=== PATIENT | female | born 1930 | race Caucasian/White ===

== ENCOUNTER → 2017-12-10 | Outpatient (CLI) | payer MEDICARE, BC ==
[~2017-12-10] MED LIST: ALTACE 10MG TAB10 MG PO; ASPIRIN 81M81 MG/TA2 PO; BYSTOLIC10 MG PO; CARAFATE 1GM1 G PO; FOLIC ACID 11 MG/TA1 PO; OMEGA-3 FISH1200 MG PO; PREDNISONE20 MG PO; VITAMIN D2000 I1
== END ==
LOC: COL.RAD 07:51
DX: M31.6 Other giant cell arteritis (principal); K76.9 Liver disease, unspecified; I74.2 Embolism and thrombosis of arteries of the upper extremities; S22.030A Wedge compression fracture of third thoracic vertebra, initial encounter for closed fracture; S22.070A Wedge compression fracture of T9-T10 vertebra, initial encounter for closed fracture
CPT/HCPCS: Q9967

== ENCOUNTER 2018-12-06 15:54 | Inpatient (IN) | payer MEDICARE, BC ==
[~2018-12-06] VITALS: Ht 154.9 cm; Wt 57.1 kg
[2019-02-23] VITALS (14 sets, daily range): BP systolic 84–189; BP diastolic 37–70; PULSE 51–101; TEMP 97.4–97.9
[2019-02-23] MEDS ORDERED: ALAWAY 10 ML10 ML OP (05:05)
[2019-02-23] MEDS ORDERED: OSCAL 500 TAB500 MG PO (05:05)
[2019-02-23] MEDS ORDERED: FERRO-TIME325 MG PO (05:07)
[2019-02-23] MEDS ORDERED: LUTEIN6 MG (05:08)
[2019-02-23] MEDS ORDERED: LUTEIN 15 MG-0.1 SGL PO (05:08)
[2019-02-23] MEDS ORDERED: MULTIPLE VITAMI1 CAP PO (05:09)
[2019-02-23] MEDS ORDERED: TOPROL XL 25MG25 MG PO (05:09)
[2019-02-23] MEDS ORDERED: ALTACE 5MG5 MG PO (05:10)
[2019-02-23] MEDS ORDERED: SYSTANE 0.4%-0.1 SOL OP (05:11)
[2019-02-23] MEDS ORDERED: REFRESH OPTIVE0.4 M1 OP (05:11)
[2019-02-23] MEDS ORDERED: VITAMINC1000TA PO (05:12)
[2019-02-23] MEDS ORDERED: ASPIRIN E.C. 8181 MG PO (05:38)
[2019-02-23] MEDS ORDERED: MILLIPRED DP5 MG PO (05:40)
[2019-02-23] MEDS ORDERED: VITAMIN D31000 I1 PO (05:41)
[2019-02-23] MEDS ORDERED: FISH OIL 500 M1 EAC1 PO (05:44)
--- NOTE | 2019-02-23 06:03 | NUR ---
Pt. arrived to the floor via wheelchair, Pt. is A&OX3, assessment complete.
--- NOTE | 2019-02-23 10:30 | NUR ---
PATIENT BACK IN ROOM 329 POST OP. PATIENT IS VERY DROWSY BUT WILL WAKE BRIEFLY TO VERBAL STIMULI. NOTED BRADYCARDIA POST OP AND SOFT B/P, SEE MAR. PATIENT WAS C/OI NAUSEA IN PACU AND GIVEN ZOFRAN & PHEN. NO C/O N/V. IV FLUIDS INFUSING VIA PUMP INTO LEFT FORARM IV. BOWENS TO DD WITH SMALL AMOUNTS OF ZAC COLORED URINE. RTH DRESSING IS CD&I WITH AQUACEL. TEDS & SCD'S TO BLE. POSITIVE PEDAL PULSES. HEAD TO TOE WNL. FAMILY AT BEDSIDE.
--- NOTE | 2019-02-23 14:14 | NUR ---
MYAH met with the patient, the patient's sons: Daniel (ph#[phone]) and Fabien, and her rzcommxy-cp-eoh (Tressa, ph#[phone]) to discuss discharge plan. The patient was sleeping. The patient lives alone in [place]. Daniel states that him and his , Tressa, also live in [place]. Daniel reports the patient was independent with ADLs prior to surgery and that she has a cane and walker. The patient's PCP is Dr. Moo Christy and she receives her medications at [facility]. Daniel reports no difficulties obtaining her meds. The patient's advanced directives are in her chart. Her DPOA-HC is Brett Bauman or Daniel or Fabien. Daniel reports that the plan is for the patient to go to [facility] upon discharge. MYAH presented and explained the Patient Choice Form. The patient's family chose [facility] and did not have a second preference at this time. Patient Choice Form signed by the patient's son, Daniel, and he was provided a copy. MYAH attempted to contact Kamini at [facility] and left her a voicemail. MYAH faxed over the referral. SW awaiting their screen.
--- NOTE | 2019-02-23 14:15 | NUR ---
PATIENT WOULD NOT WAKE OR ANSWER WHEN ROUNDING. FAMILY AT BEDSIDE. PATIENT VERY DROWSY. CONTINUOUS VITAL BEING MONITORED.
--- NOTE | 2019-02-23 14:30 | NUR ---
250CC FLUID BOLUS STARTED PER ORTHO. HOSPITALIST CONSULT FOR SEDATION AND HYPOTENTION. CONSULT CALLED. PATIENT STILL VERY DROWSY.
--- NOTE | 2019-02-23 14:49 | NUR ---
Initial visit; Patient and her family thanked Director Of Medical Services for looking in on her and offering prayer and God's blessings for a rapid and thorough healing.
--- NOTE | 2019-02-23 15:15 | NUR ---
PATIENT IS NOW MORE AWAKE. C/O SLIGHT NAUSEA, NO EMESIS. PATIENT DOESN'T WANT ANY MEDS AT THIS TIME. B/P IMPROVING AFTER FLUID BOLUS. URINE OUTPUT IMPROVED, DRAINED 325CC OF CLEAR URINE. FAMILY AT BEDSIDE. WILL MONITOR.
[2019-02-23 16:00] LABS: BASO % 0.3 % (0.0-2.0); GRAN # 11.4 (1.4-6.5); GRAN % 89.3 % (42.2-75.2); HEMATOCRIT 40.7 % (37.0-47.0); HEMOGLOBIN 12.9 g/dl (12.5-16.0); LYMPH # 0.7 (1.2-3.4); LYMPH % 5.2 % (20.0-51.0); MEAN CELL VOLUME 92 fl (80.0-100.0); MEAN CORPUSCULAR HEMOGLOBIN 29 pg (27.0-31.0); MEAN CORPUSCULAR HGB CONC 32 g/dl (33.0-37.0); MEAN PLATELET VOLUME 10.3 fl (7.4-10.4); MONO # 0.6 (0.1-0.6); MONO % 4.7 % (1.7-9.3); PLATELET COUNT 201 K/mm3 (130-400); RED BLOOD COUNT 4.44 M/mm3 (4.10-5.30); REDCELL DISTRIBUTION WIDTH-CV 15.2 % (11.5-14.5)
[2019-02-23 16:16] LABS: ALANINE AMINOTRANSFERASE 24 U/L (9-52); ALBUMIN 3.3 gm/dL (3.5-5.0); ALKALINE PHOSPHATASE 53 U/L (50-136); ANION GAP 7 mmol/L (7-16); AST,SGOT 33 U/L (15-37); BILIRUBIN,TOTAL 0.3 mg/dL (0.0-1.0); BLOOD UREA NITROGEN 19 mg/dL (7-17); CALCIUM 7.7 mg/dL (8.4-10.2); CARBON DIOXIDE 25 mmol/L (22-30); CHLORIDE 106 mmol/L (98-107); CREATININE, serum 0.93 (0.52-1.25); GLUCOSE 231 mg/dL (74-106); SODIUM 137 mmol/L (137-145); TOTAL PROTEIN 6.3 gm/dL (6.4-8.2)
[2019-02-23 16:32] LABS: TROPONIN-I < 0.012 ng/mL (0.000-0.035)
--- NOTE | 2019-02-23 17:30 | NUR ---
PATIENT FELT NAUSEATED WITH SOLID FOODS BUT WAS ABLE TO DRINK A SOFY. PROTEIN SHAKE.
[2019-02-24] VITALS (7 sets, daily range): BP systolic 102–141; BP diastolic 40–62; PULSE 53–95; TEMP 97.4–99.4
--- NOTE | 2019-02-24 04:27 | NUR ---
Patient has rested well throughout the night. Ambulated with staff to carpet outside doorway and back. Tolerated this well. Educated on the possibility of narcotics bringing down her blood pressure and patient stated she wanted to try to stay away from narcotics anyways. Patient has been very drowsy after she fell asleep and is noted to be hard to wake up. IVF continue. Denies pain. States pain is tolerable when she is up and moving. Denies any further needs. Will continue to monitor.
[2019-02-24 07:09] LABS: BASO % 0.5 % (0.0-2.0); EOS # 0.1 (0.0-0.7); GRAN # 6.4 (1.4-6.5); HEMOGLOBIN 11.7 g/dl (12.5-16.0); LYMPH # 1.6 (1.2-3.4); LYMPH % 18.5 % (20.0-51.0); MEAN CELL VOLUME 92 fl (80.0-100.0); MEAN CORPUSCULAR HEMOGLOBIN 29 pg (27.0-31.0); MEAN CORPUSCULAR HGB CONC 32 g/dl (33.0-37.0); MEAN PLATELET VOLUME 10.6 fl (7.4-10.4); MONO # 0.6 (0.1-0.6); MONO % 6.4 % (1.7-9.3); PLATELET COUNT 185 K/mm3 (130-400); RED BLOOD COUNT 3.99 M/mm3 (4.10-5.30); REDCELL DISTRIBUTION WIDTH-CV 15.3 % (11.5-14.5)
[2019-02-24 07:10] LABS: HEMATOCRIT 36.5 % (37.0-47.0)
[2019-02-24 07:21] LABS: CALCIUM 7.2 mg/dL (8.4-10.2); CREATININE, serum 0.98 (0.52-1.25); POTASSIUM 3.4 mmol/L (3.4-5.0)
[2019-02-24 09:17] LABS: COLLECTION METHOD CATHETER
[2019-02-24 09:25] LABS: PH 6 (5-8); SQUAMOUS EPITHELIAL None Seen /hpf; URINE APPEARANCE Clear; URINE BACTERIA None Seen /hpf; URINE BILIRUBIN Negative (NEGATIVE); URINE BLOOD Negative (NEGATIVE); URINE COLOR Straw; URINE GLUCOSE Negative (NEGATIVE); URINE KETONE Negative (NEGATIVE); URINE LEUKOCYTE ESTERASE Negative (NEGATIVE); URINE NITRATE Negative (NEGATIVE); URINE PROTEIN(semi-quant) Negative (NEGATIVE); URINE RBC 0-2 /hpf; URINE UROBILINOGEN Negative (NEGATIVE); URINE WBC 0-2 /hpf
--- NOTE | 2019-02-24 09:58 | NUR ---
PT UP TO RECLINER WITH THERAPY. EATING AND DRINKING WIHT NO N/V OBSERVED OR REPORTED. DRESSING CDI. VSS. PAIN WELL CONTROLLED WITH PO MEDS AT THIS TIME.
--- NOTE | 2019-02-24 10:27 | NUR ---
Follow-up visit; Patient doing well, she and her children thanked for looking in on her this morning.
--- NOTE | 2019-02-24 11:26 | NUR ---
MYAH contacted Kamini, at [facility], for a status on referral and informed her of the tentative discharge date for Thursday, 02/26. Kamini reports that they should be able to accept and that she will touch base with MYAH tomorrow to inform who the accepting doctor will be on Thursday. MYAH to update the patient and her family and will continue to follow.
--- NOTE | 2019-02-24 17:24 | NUR ---
PT VOIDING WITH NO ISSUES.
--- NOTE | 2019-02-24 19:06 | NUR ---
REPORT TO NITIN FAULKNER.
--- NOTE | 2019-02-24 19:40 | NUR ---
Report received. 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 Assessment complete. VS stable. A&Ox3. Rating pain 6/10 to right hip-constant ache-states tylenol should cover the pain. Also applied fresh ice pack to right hip. Aquacell dressing to right hip C/D/I. TEDs/SCDs bilat. Tele report-SR with 1st degree AV block. Denies nausea/shortness of breath. INT to left forearm-flushes without difficulty. Instructed to call for questions/concerns/increased pain. Verbalizes understanding. Call light in reach. Will monitor.
[2019-02-25 02:42] VITALS: BP 136/61; PULSE 76; TEMP 98.4
--- NOTE | 2019-02-25 05:00 | NUR ---
Has rested well this shift. Pain has been adequately controlled with PO meds. Refused scheduled Tramadol this AM. States she will call for pain meds if she needs them. Has rotated ice off and on this shift. SCDs/TEDs bilat. Denies nausea/shortness of breath. Voiding without difficulty. +Flatus. Ambualted in hallway earlier this shift with stand by assist x1 approx 150feet. Tolerated well. Denies needs. Call light in reach. Will monitor.
--- NOTE | 2019-02-25 08:00 | NUR ---
Patient resting in bed eating breakfast at this time. Patient is alert and oriented, answers questions appropriately. Patient denies pain or needs at this time, call light within reach.
[2019-02-25 08:04] LABS: BASO % 0.2 % (0.0-2.0); EOS # 0.2 (0.0-0.7); EOS % 1.4 % (0-4.0); GRAN # 9.4 (1.4-6.5); GRAN % 84.7 % (42.2-75.2); HEMATOCRIT 38.4 % (37.0-47.0); HEMOGLOBIN 12.3 g/dl (12.5-16.0); LYMPH # 0.9 (1.2-3.4); LYMPH % 8.4 % (20.0-51.0); MEAN CELL VOLUME 93 fl (80.0-100.0); MEAN CORPUSCULAR HEMOGLOBIN 30 pg (27.0-31.0); MEAN CORPUSCULAR HGB CONC 32 g/dl (33.0-37.0); MEAN PLATELET VOLUME 10.4 fl (7.4-10.4); MONO # 0.5 (0.1-0.6); MONO % 4.7 % (1.7-9.3); PLATELET COUNT 199 K/mm3 (130-400); RED BLOOD COUNT 4.15 M/mm3 (4.10-5.30); REDCELL DISTRIBUTION WIDTH-CV 15.8 % (11.5-14.5)
[2019-02-25 08:27] LABS: CALCIUM 7.7 mg/dL (8.4-10.2); CREATININE, serum 1.06 (0.52-1.25); POTASSIUM 4.1 mmol/L (3.4-5.0)
[2019-02-25 08:38] VITALS: BP 142/52; PULSE 83; TEMP 99.3
--- NOTE | 2019-02-25 11:18 | NUR ---
Kamini, at [facility], reports that they are able to accept the patient tomorrow, 02/26, and that Dr. Moo Christy is the accepting doctor. His phone number is [phone] for the [id number]. Kamini asked for the phone call to happen today. MYAH notified the patient's PA-C, Bibi, and provided her with his phone number. MYAH updated the patient and her son (Pravin), via phone. They were all in agreeance to discharge tomorrow. Pravin plans to provide transportation. MYAH also presented and explained the IM form to the patient. The patient verbalized understanding, signed, and she was provided a copy. MYAH to fax updates to Kamini at [facility] and will continue to follow.
[2019-02-25 12:45] VITALS: BP 132/55; PULSE 79; TEMP 98.2
[2019-02-25] MEDS ORDERED: ULTRAM 50MG TAB50 MG PO (14:03)
[2019-02-25] MEDS ORDERED: ASPI325T6 PO (14:03)
[2019-02-25] MEDS ORDERED: NORCO 325 MG-7.1 TAB PO (14:03)
[2019-02-25 15:20] VITALS: BP 148/44; PULSE 67; TEMP 97.9
--- NOTE | 2019-02-25 17:21 | NUR ---
Sitting up in chair. Denies pain at this time. Explains that she has been trying to have bowel movement all day today. Explained medications that are ordered for constipation and the patient requests to take the Senokot at this time instead of at 2100. Medication administered. Patient denies further needs.
--- NOTE | 2019-02-25 20:00 | NUR ---
Report received. 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 Assessment complete. VS stable. A&Ox3. Ambulated in bill for apporx 150 feet-stand by assist with walker/gait belt. Tolerated well. SCDs/TEDs bilat. Aquacell dressing to Right hip-C/D/I. Fresh ice pack applied. Scheduled tylenol given for pain to right hip rated 4/10-described as constant ache. Denies need for stronger medication. Denies nausea/shortness of breath. Voiding without difficulty. +flatus. +BM this shift. Denies questions or concerns. Call light in reach. Will monitor.
[2019-02-25 20:03] VITALS: BP 128/95; PULSE 69; TEMP 98.1
[2019-02-26 00:19] VITALS: BP 136/52; PULSE 70; TEMP 98.7
[2019-02-26 03:58] VITALS: BP 138/65; PULSE 73; TEMP 98.7
--- NOTE | 2019-02-26 05:00 | NUR ---
Has rested well this shift. Pain controlled with tylenol. Denies nausea/shortness of breath. Ambulated in the hallway x1 last NOC. Refused 0500 prednisone requesting a re-time so that her breakfast is in [place] process of being eaten as a snack is not enough to prevent nasuea. Refused eye drops stating she doesnt use them scheduled only PRN when eyes are dry. Refused scheduled tramadol due to having no pain. Denies needs. Call light in reach. Will monitor.
[2019-02-26 07:39] LABS: BASO % 0.4 % (0.0-2.0); EOS # 0.3 (0.0-0.7); EOS % 2.4 % (0-4.0); GRAN # 7.7 (1.4-6.5); GRAN % 74.7 % (42.2-75.2); HEMATOCRIT 38.1 % (37.0-47.0); HEMOGLOBIN 11.9 g/dl (12.5-16.0); LYMPH # 1.7 (1.2-3.4); LYMPH % 16.7 % (20.0-51.0); MEAN CELL VOLUME 93 fl (80.0-100.0); MEAN CORPUSCULAR HEMOGLOBIN 29 pg (27.0-31.0); MEAN CORPUSCULAR HGB CONC 31 g/dl (33.0-37.0); MEAN PLATELET VOLUME 10.8 fl (7.4-10.4); MONO # 0.5 (0.1-0.6); MONO % 5.1 % (1.7-9.3); PLATELET COUNT 199 K/mm3 (130-400); RED BLOOD COUNT 4.12 M/mm3 (4.10-5.30); REDCELL DISTRIBUTION WIDTH-CV 15.7 % (11.5-14.5)
[2019-02-26 07:43] VITALS: BP 142/70; PULSE 85; TEMP 98.1
[2019-02-26] MEDS ORDERED: ALTACE 10MG TAB10 MG PO (10:22)
--- NOTE | 2019-02-26 10:54 | NUR ---
SW corresponded with patients nurse for patients release. SW attempted to contact [facility] to confirm patients arrival, there was no answer, and so SW left a message for rn neonatal icu nurse outreach case manager to return call. SW faxed over discharge paperwork,and spoke to patients nurse to confirm nurse to nurse report.
[2019-02-26 10:59] VITALS: BP 142/70; PULSE 85; TEMP 98.1
--- NOTE | 2019-02-26 11:20 | NUR ---
Patient is discharging to [facility]. Aquacel dressing changed before discharge as ordered. Report called. Patients family is taking her. All belongings packed up. Info packet sent with patient. Patient walked out via wheel chair by Sandi HUNTER.
== END 2019-02-26 11:20 | disposition swing bed (61) | DRG 470 ==
LOC: JCC 02-23 05:05
PROVIDERS: Nurse Practitioner Family; Physician Assistant; ADMIT Orthopaedic Surgery
PROC: 0SR904Z Replacement of Right Hip Joint with Ceramic on Polyethylene Synthetic Substitute, Open Approach (ICD-10-PCS; principal; 2019-02-23 07:30)
DX: M16.11 Unilateral primary osteoarthritis, right hip (principal); I10 Essential (primary) hypertension; M35.3 Polymyalgia rheumatica; Z90.79 Acquired absence of other genital organ(s); Z90.721 Acquired absence of ovaries, unilateral; I95.81 Postprocedural hypotension; M31.6 Other giant cell arteritis
CPT/HCPCS: 99222; 99232-AI; A4314; A9284; C1713; C1776; J0360; J0690; J1720; J2250; J2370; J2550; J2704; J3010; J7050; J7120; J7512

== ENCOUNTER → 2019-02-14 | Outpatient (CLI) | payer MEDICARE, BC ==
[2019-02-14 13:05] LABS: HIV 1/2 Antibodies Non-Reactive; HIV-1p24 Antigen Non-Reactive
== END ==
LOC: COL.LAB 11:09
PROVIDERS: Orthopaedic Surgery
DX: Z01.818 Encounter for other preprocedural examination (principal); M19.90 Unspecified osteoarthritis, unspecified site